=== PATIENT | male | born 1935 | race Caucasian/White ===

== ENCOUNTER 2017-10-24 06:50 | Day surgery (SDC) | payer MEDICARE, OTHER ==
[2017-10-17 11:44] LABS: BASOPHILS % (AUTO) 0.4 % (0-1); EOSINOPHILS # (AUTO) 0.2 X10'3 (0-0.9); EOSINOPHILS % (AUTO) 2.9 % (0-6); LYMPHOCYTES # (AUTO) 1.4 X10'3 (1.1-4.8); LYMPHOCYTES % (AUTO) 16.5 % (21-51); MEAN CORPUSCULAR HGB CONC 33.8 % (33.0-36.5); MEAN CORPUSCULAR VOLUME 94.6 FL (78-98); MEAN PLATELET VOLUME 9.4 FL (7.4-10.4); MONOCYTES # (AUTO) 0.6 X10'3 (0-0.9); MONOCYTES % (AUTO) 7.8 % (2-12); NEUTROPHILS % (AUTO) 72.4 % (42-75); PRE OP HEMATOCRIT 41.1 % (42.0-52.0); PRE OP HEMOGLOBIN 13.9 g/dL (14.0-17.9); PRE OP PLATELET COUNT 142 X10'3 (140-440); RED BLOOD COUNT 4.35 X10'6 (4.70-6.10)
[2017-10-17 11:47] LABS: PRE OP INR 1.3 INR; PRE OP PROTIME 12.9 SECONDS (9.0-12.0)
[2017-10-17 11:53] LABS: ALBUMIN 4.1 G/DL (3.4-5.0); ALKALINE PHOSPHATASE 71 IU/L (46-116); BLOOD UREA NITROGEN 28 MG/DL (7-18); BUN/CREATININE RATIO 16.2 (5.4-32.0); CALCIUM 9.4 MG/DL (8.5-10.1); CHLORIDE 102 MMOL/L (99-107); CREATININE 1.73 MG/DL (0.60-1.10); PRE OP ALT 46 U/L (30-65); PRE OP ANION GAP 5 (8-16); PRE OP AST 30 U/L (10-37); PRE OP BILIRUB, TOTAL 0.7 MG/DL (0.0-1.0); PRE OP GLUCOSE 123 MG/DL (70-104); PRE OP POTASSIUM 4.5 MMOL/L (3.4-5.1); PRE OP SODIUM 138 MMOL/L (135-145); TOTAL CARBON DIOXIDE 30.9 MMOL/L (24-32); TOTAL PROTEIN 8.1 G/DL (6.4-8.2); eGFR 38 ML/MIN
[~2017-10-24] VITALS: Ht 177.8 cm; Wt 86.8 kg
[2017-10-24] VITALS (8 sets, daily range): BP systolic 91–116; BP diastolic 46–59
[~2017-10-24 06:50] MED LIST: ACET-2119 PO; ATOR20TA66 PO; CA/MG/ZINC PO; CARV-50 PO; CHOL200016 PO; DABI75CA3 PO; DIGO125T97 PO; DIPH1TAB PO; DOCUMENT DATE & TIME OF BETA-BLOCKER PO ONE; FURO-149 PO; PANT-47 PO; POTA10TA19 PO; PSYL1CAP3 PO; TEMA30CA5 PO; clindamycin 600mg/D5W 50ml 50 ML IV ONE; famotidine 20mg tablet PO ONE; ringers solution, lacted 1,000 ML IV SCH
[2017-10-24] MEDS ORDERED: LIDOcaine 1% (10mg/ml) 2ml vial ONE (07:16)
[2017-10-24 08:13] LABS: PRE OP INR 1.2 INR; PRE OP PROTIME 11.9 SECONDS (9.0-12.0)
[2017-10-24] MEDS ORDERED: BUPIVAcaine/PF 2.5mg/ml (0.25%) 10ml vial ONE (08:46)
[2017-10-24] MEDS ORDERED: LIDOcaine 0.5% (5mg/ml) 50ml vial ONE (08:47)
[2017-10-24] MEDS ORDERED: fentaNYL/PF 50MCG/1 ML 2ML syringe ONE (09:21)
[2017-10-24] MEDS ORDERED: midazolam 2 mg/2 ml injection ONE (09:21)
[2017-10-24] MEDS ORDERED: sevoflurane 250ml liquid IH ONE (09:22)
[2017-10-24] MEDS ORDERED: ringers solution, lacted 1,000 ML IV SCH (09:48)
[2017-10-24] MEDS ORDERED: ondansetron/PF 4mg/2ml inj IV PRN (09:50)
[2017-10-24] MEDS ORDERED: morphine 4 MG/ML inj SYRINge IV PRN (09:50)
== END 2017-10-24 10:45 | disposition home or self-care (01) ==
LOC: PAS 06:50
PROVIDERS: ATTEND Orthopaedic Surgery Hand Surgery
DX: G56.02 Carpal tunnel syndrome, left upper limb (principal); M65.332 Trigger finger, left middle finger; M65.342 Trigger finger, left ring finger; I25.2 Old myocardial infarction; I25.810 Atherosclerosis of coronary artery bypass graft(s) without angina pectoris; I49.8 Other specified cardiac arrhythmias; K21.9 Gastro-esophageal reflux disease without esophagitis; N40.0 Benign prostatic hyperplasia without lower urinary tract symptoms; I13.0 Hypertensive heart and chronic kidney disease with heart failure and stage 1 through stage 4 chronic kidney disease, or unspecified chronic kidney disease; N18.3 Chronic kidney disease, stage 3 (moderate); I50.23 Acute on chronic systolic (congestive) heart failure; J44.9 Chronic obstructive pulmonary disease, unspecified; I42.0 Dilated cardiomyopathy; E78.5 Hyperlipidemia, unspecified; Z79.01 Long term (current) use of anticoagulants; Z87.11 Personal history of peptic ulcer disease; Z88.5 Allergy status to narcotic agent; Z79.891 Long term (current) use of opiate analgesic; Z88.0 Allergy status to penicillin; Z87.891 Personal history of nicotine dependence; Z87.01 Personal history of pneumonia (recurrent); Z99.81 Dependence on supplemental oxygen; Z90.49 Acquired absence of other specified parts of digestive tract; Z95.0 Presence of cardiac pacemaker; Z95.1 Presence of aortocoronary bypass graft; Z95.5 Presence of coronary angioplasty implant and graft; Z86.14 Personal history of Methicillin resistant Staphylococcus aureus infection; Z90.89 Acquired absence of other organs; F32.9 Major depressive disorder, single episode, unspecified; Z88.8 Allergy status to other drugs, medicaments and biological substances; Z79.899 Other long term (current) drug therapy; Z98.890 Other specified postprocedural states; Z83.6 Family history of other diseases of the respiratory system; Z82.49 Family history of ischemic heart disease and other diseases of the circulatory system
CPT/HCPCS: 26055; 36415; 64721; 71046; 80053; 85025; 85610; 85730; 93005; A6222; A6258; A6449; J2001; J2250; J3010; J3490; J7120